=== PATIENT | male | born 1975 | race Hispanic/Latino ===

== ENCOUNTER 2016-08-10 05:52 | Emergency (ER) | payer SELFPAY ==
[~2016-08-10] VITALS: Ht 170.2 cm; Wt 81.8 kg
[2016-08-10 05:54] VITALS: BP 120/86; PULSE 81; RESP 18; O2SAT 95
--- NOTE | 2016-08-10 06:13 | ED.REPORT ---
HPI-General Illness Date of Service Aug 10, 2016 ED Provider: Rolando Guzman DO The patient is a 40 year old otherwise healthy male who presents to the emergency department complaining of "flu-like" symptoms that began 4 days ago. He initially noticed mild abdominal pain on Tuesday but this resolved spontaneously. The pain returned on Tuesday night and then he developed a "dry throat." His abdominal pain has continued and now he also complains of a cough, nasal congestion, nausea, subjective fever, and myalgias. His nausea is worse after eating. He has been taking Mucinex and Tylenol with some relief. He does not normally take Tylenol. He denies vomiting, diarrhea, rash or headache. Nursing Notes Stated Complaint: SORE THROAT & ABDOMINAL PAIN Chief Complaint: FLU/Cold Symptoms Nursing Notes Reviewed: Yes General Time Seen by MD: 06:04 Chief Complaint Flu-like illness Hx Obtained From: Patient Arrived By: Walk-in Sudden in Onset?: No Onset Occurred: 4 days ago Symptom Duration: Since onset Location: : Abdomen Quality: Painful Severity: Current: Mild Severity: Maximum: Mild Recent Healthcare: No recent doctor visit, No recent hospitalization Similar Sx Previous: No Past Medical History Past Medical History Denies Past Surgical History None Family History Noncontributory Smoking History Never Smoker Social History Alcohol Use: "Social" Drug Use: Denies drug use Other Social History: Local resident Ambulatory Status Independent Review of Systems +dry throat Full Review of Systems Constitutional: Reports: Fever Ears / Nose / Throat: Reports: Nasal congestion Respiratory: Reports: Non-productive cough GI: Reports: Abdominal pain, Nausea, Denies: Diarrhea, Vomiting Musculoskeletal: Reports: Myalgia Skin: Denies Rash Neurologic: Denies: Headache Complete sys rev & neg: except as marked. Physical Exam Vital Signs Vital Signs Date Time Temp Pulse Resp B/P Pulse Ox O2 Delivery O2 Flow Rate FiO2 08/10/16 05:54 36.6 81 18 120/86 95 Room Air Initial VS: Reviewed Head / Eyes: Atraumatic, Normocephalic, PERRL Neck: Supple, Non-tender, Full range of motion Extremities: Vascular intact, Neuro intact, No swelling, No tenderness Skin: Warm, Dry, No cyanosis Neurologic: Alert, Oriented, Nonfocal Psychiatric: Mood/affect normal, Behavior normal, Normal thought content General/Constitutional: Awake, Alert, No acute distress, Well appearing, Cooperative ENT: Airway patent, Mucous membranes moist, Pharynx NL Respiratory / Chest: Atraumatic, Breath sounds NL, Breath sounds = bilat, No respiratory distress, No rales, No rhonchi, No wheezing Cardiovascular: Heart rate NL, Regular rhythm, Heart sounds NL, No gallop, No murmurs, No rubs, Cap refill not delayed, Peripheral circulation NL Abdomen: Atraumatic, Soft, No guarding, No rebound, BS normoactive, No distention, No hernia, No palpable mass, No pulsatile mass Tenderness/Guarding/Rebound: Positive: Tender epigastric (mild) Interpretation & Diagnostics Interpretation & Diagnostics: Positive for Influenza A Lab Results Interpretation Result Diagram: 08/10/16 0655 08/10/16 0655 Test 08/10/16 06:55 White Blood Count 6.8th/mm3 (3.8-10.1) Red Blood Count 5.49mil/mm3 (4.40-5.80) Hemoglobin 16.9g/dL (13.8-17.2) Hematocrit 51.0% (41.0-50.0) Mean Corpuscular Volume 92.9fL (81-100) Mean Corpuscular Hemoglobin 30.8pg (27.0-35.0) Mean Corpuscular Hemoglobin Concent 33.1% (32.0-37.0) Red Cell Distribution Width 13.8% (12.3-15.4) Platelet Count 172bil/L (150-400) Neutrophils (%) (Auto) 65.6% (40-74) Lymphocytes (%) (Auto) 19.3% (14-46) Monocytes (%) (Auto) 14.5% (4-12) Eosinophils (%) (Auto) 0.4% (0-5) Basophils (%) (Auto) 0.1% (0-3) Sodium Level 139mEq/L (134-144) Potassium Level 4.2mEq/L (3.5-5.2) Chloride Level 103mEq/L (97-108) Carbon Dioxide Level 25mmol/L (18-29) Blood Urea Nitrogen 10mg/dL (6-24) Creatinine 1.19mg/dL (0.76-1.27) Estimat Glomerular Filtration Rate 72mL/min (>59) Glucose Level 113mg/dL (60-99) Calcium Level 8.8mg/dL (8.5-10.1) Total Bilirubin 0.3mg/dL (0.0-1.2) Aspartate Amino Transf (AST/SGOT) 29U/L (0-50) Alanine Aminotransferase (ALT/SGPT) 31U/L (0-44) Alkaline Phosphatase 82U/L (25-150) Total Protein 7.5g/dL (6.4-8.4) Albumin 4.0g/dL (3.4-5.0) Lipase 43U/L (13-60) Hold Johnson Top Tube Received (Received) Re-Eval/Medical Decision Med Decision/Clinical Course Influenza, basic labs were done for upper abdominal pain and failed to show any other pathology. Patient is outside of the window for Tamiflu. Will discharge on ibuprofen. Return precautions given. Source of Hx: Old records Time of Eval: 07:55 Re-Evaluation/Progress Note: Rechecked the patient. Discussed lab results, diagnosis, and plan for discharge. All questions were addressed. Counseled Regarding: Diagnosis, Lab results, Need for follow-up, When/why to return to ED Discharge & Departure Primary Impression: Influenza due to influenza A virus Disposition: Home Discharge Condition All VS Reviewed: Yes Condition: Stable Patient Instructions: Influenza (ED) Additional Instructions: Thank you for entrusting us with your care today. Use Ibuprofen as prescribed. Limit Tylenol to 650 mg every 6 hours. Make sure to rest and drink plenty of fluids. Followup with your regular doctor in a few days if your symptoms are not improving. Return to the emergency department for any new or concerning symptoms. Referrals: Jossue Sykes MD (Family) Scribe Attestation Portions of this note were transcribed by Vanessa Panda. I, Dr. Guzman personally performed the history, physical exam and medical decision-making; I reviewed and confirmed the accuracy of the information in the transcribed note. Signed by: Kaylin Hidalgo, 08/10/2016 and 0800. Rolando Guzman DO Aug 10, 2016 06:13 Vanessa Panda Aug 10, 2016 06:30
[2016-08-10] MEDS ORDERED: Alum-Mag Hydrox-Simeth 30 mL Suspension PO ONE (06:30)
[2016-08-10] MEDS ORDERED: Ondansetron 8 mg ODT Tablet PO ONE (06:30)
[2016-08-10 07:04] LABS: BASOPHILS % (AUTO) 0.1 % (0-3); EOSINOPHILS % (AUTO) 0.4 % (0-5); MONOCYTES % (AUTO) 14.5 % (4-12); Mean Corpuscular Hemoglobin 30.8 pg (27.0-35.0); Mean Corpuscular Volume 92.9 fL (81-100); NEUTROPHILS % (AUTO) 65.6 % (40-74); Platelet Count 172 bil/L (150-400)
[2016-08-10 08:10] VITALS: BP 131/93; PULSE 72; RESP 16
== END 2016-08-10 07:56 | disposition home or self-care (01) ==
LOC: SED 05:52
DX: J10.89 Influenza due to other identified influenza virus with other manifestations (principal); R10.9 Unspecified abdominal pain; R05 Cough; R09.81 Nasal congestion; R11.0 Nausea; R50.9 Fever, unspecified; M79.1 Myalgia